=== PATIENT | female | born 1975 | race Two or more races ===

== ENCOUNTER 2024-07-20 17:39 | Emergency (ER) | payer BC ==
[~2024-07-20] VITALS: Ht 157.5 cm; Wt 55.3 kg
[2024-07-20 18:26] LABS: BASOPHILS % (AUTO) 0.5 % (0.0-2.0); EOSINOPHILS # (AUTO) 0.1 K/uL (0.0-0.7); EOSINOPHILS % (AUTO) 1.6 % (0.0-6.0); HEMATOCRIT 40 % (33-45); HEMOGLOBIN 13.5 g/dL (11.5-14.8); LYMPHOCYTES # (AUTO) 1.1 K/uL (0.8-4.8); LYMPHOCYTES % (AUTO) 17.1 % (20.0-44.0); MEAN CORPUSCULAR HEMOGLOBIN 30 PG (26.0-33.0); MEAN CORPUSCULAR HGB CONC 33 g/dl (31.0-36.0); MEAN CORPUSCULAR VOLUME 90 fL (82-100); MONOCYTES # (AUTO) 0.4 K/uL (0.1-1.30); MONOCYTES % (AUTO) 5.5 % (2.0-12.0); NEUTROPHILS % (AUTO) 75.3 % (43.0-81.0); PLATELET COUNT (AUTO) 246 K/uL (150-450); RED BLOOD CELL COUNT(AUTO) 4.48 MIL/uL (4.0-5.2); RED CELL DISTRIBUTION WIDTH 13.2 % (11.5-15.0); WHITE BLOOD COUNT (AUTO) 6.7 K/uL (4.3-11.0)
[2024-07-20 18:35] LABS: CALCIUM, SERUM 9.5 mg/dL (8.5-10.1); CREATININE 0.7 mg/dL (0.6-1.3); POTASSIUM 3.3 mmol/L (3.5-5.1)
[2024-07-20] MEDS ORDERED: ONDA4TAB5 PO (18:38)
[2024-07-20] MEDS ORDERED: PANT20TA2 PO (18:38)
[2024-07-20 18:40] LABS: ALBUMIN 3.9 g/dL (3.4-5.0); BILIRUBIN,DIRECT 0.1 mg/dL (0.0-0.2); BILIRUBIN,TOTAL 0.8 mg/dL (0.2-1.0); TOTAL PROTEIN, SERUM 7.9 g/dL (6.4-8.2)
[2024-07-20] MEDS ORDERED: PANTOPRAZOLE 40 MG VIAL ONE (18:53)
[2024-07-20] MEDS ORDERED: ONDANSETRON HCL/PF 4 MG/2 ML VIAL ONE (18:53)
[2024-07-20] MEDS: ONDANSETRON HCL/PF 4 MG/2 ML VIAL IVP ONE (19:00)
[2024-07-20] MEDS: IV NS 0.9% 1,000 ML BAG IV ONE (19:00)
[2024-07-20] MEDS: PANTOPRAZOLE 40 MG VIAL IV ONE (19:00)
[2024-07-20] MEDS ORDERED: DOXY100C2 PO (19:13)
[2024-07-20] MEDS ORDERED: PRED20TA PO (19:13)
[2024-07-20] MEDS ORDERED: HYDR-4303 PO (19:13)
[2024-07-20] MEDS ORDERED: MORPHINE SULFATE INJ 4 MG/ML DISP.SYRIN ONE (19:24)
[2024-07-20] MEDS: MORPHINE SULFATE INJ 2 MG/ML DISP.SYRIN IV ONE (19:32)
[2024-07-20 20:39] LABS: APPEARANCE,URINE CLEAR (CLEAR); BILIRUBIN,URINE NEGATIVE (NEGATIVE); BLOOD, URINE NEGATIVE Ery/uL (NEGATIVE); COLOR,URINE YELLOW (YELLOW); KETONES,URINE NEGATIVE (NEGATIVE); LEUKOCYTE ESTERASE ,URINE NEGATIVE (NEGATIVE); NITRITE, URINE NEGATIVE (NEGATIVE); PROTEIN,URINE NEGATIVE (NEGATIVE); UGLUCOSE NEGATIVE (NEGATIVE); UROBILINOGEN,URINE 0.2 EU/dL (0.2)
[2024-07-20 20:51] VITALS: BP 157/109; TEMP 98.1; O2SAT 99
== END 2024-07-20 20:51 | disposition home or self-care (01) ==
LOC: ER 17:45
DX: K62.89 Other specified diseases of anus and rectum (principal); R10.30 Lower abdominal pain, unspecified; K92.2 Gastrointestinal hemorrhage, unspecified; G20.A1 Parkinson's disease without dyskinesia, without mention of fluctuations; I10 Essential (primary) hypertension; Z79.899 Other long term (current) drug therapy
CPT/HCPCS: 99285; 74176; 96374; 96375; 96361; 85025; 80048; 83690; 80076; 81003; 36415; J2270; J2405; J7030; J2470